=== PATIENT | male | born 1950 | race Caucasian/White ===

== ENCOUNTER 2019-07-08 08:14 | Emergency (ER) | payer BC ==
[2019-07-08 08:37] VITALS: BP 143/92
--- NOTE | 2019-07-08 09:30 | UC ---
Skin Complaint HPI - HPI Summary HPI Summary: rash right mid back x 4 days the area is painful and itchy pain is 6 out of 10, nothing makes it better or worse no known contacts , concern about some kind of bits no fever, no chills - History of Current Complaint Chief Complaint: [facility] Time Seen by Provider: 07/08/19 08:54 Stated Complaint: SKIN CONCERN Hx Obtained From: Patient Onset/Duration: Gradual Onset, Lasting Days - 4, Still Present Timing: Constant Onset Severity: Moderate Current Severity: Moderate Pain Intensity: 0 Pain Scale Used: 0-10 Numeric Location: Discrete - right mid back Character: Swelling, Pruritus, Pain, Redness Aggravating Factor(s): Nothing Alleviating Factor(s): Nothing Associated Signs & Symptoms: Positive: Negative - Allergy/Home Medications Allergies/Adverse Reactions: Allergies Allergy/AdvReac Type Severity Reaction Status Date / Time No Known Allergies Allergy Verified 07/08/19 08:33 Home Medications: Home Medications Ascorbic Acid TAB* [Vitamin C TAB*] 500 mg PO DAILY 07/08/19 [History Confirmed 07/08/19] Aspirin [Aspir-Low] 81 mg PO DAILY 07/08/19 [History Confirmed 07/08/19] Atorvastatin* [Lipitor*] 40 mg PO DAILY 07/08/19 [History Confirmed 07/08/19] Clopidogrel TAB* [Plavix TAB*] 75 mg PO DAILY 07/08/19 [History Confirmed ] Metoprolol Tartrate TAB* [Lopressor TAB*] 25 mg PO DAILY 07/08/19 [History Confirmed 07/08/19] PMH/Surg Hx/FS Hx/Imm Hx Endocrine History: Diabetes Cardiovascular History: Cardiac Disease, Hypertension - Surgical History Surgical History: Yes Surgery Procedure, Year, and Place: stents. aortic valve replacement - Family History Known Family History: Positive: Diabetes - Social History Alcohol Use: Occasionally Substance Use Type: None Smoking Status (MU): Heavy Every Day Tobacco Smoker Type: Cigars Amount Used/How Often: 1 PPD Review of Systems All Other Systems Reviewed And Are Negative: Yes Constitutional: Positive: Negative Skin: Positive: Rash Is Patient Immunocompromised?: No Physical Exam Triage Information Reviewed: Yes Appearance: Well-Appearing, No Pain Distress, Well-Nourished Vital Signs: Initial Vital Signs Temp 97.5 F 07/08/19 08:33 Pulse 79 07/08/19 08:33 Resp 17 07/08/19 08:33 BP 143/92 07/08/19 08:33 Pulse Ox 98 07/08/19 08:33 Vital Signs Reviewed: Yes Eye Exam: Normal Eyes: Positive: Conjunctiva Clear ENT: Positive: Normal ENT inspection, Hearing grossly normal, Pharynx normal Neck: Positive: Supple, Nontender, No Lymphadenopathy Respiratory: Positive: Chest non-tender, Lungs clear, Normal breath sounds Cardiovascular: Positive: RRR, No Murmur, Pulses Normal Skin: Positive: Rashes - visicular rash right mid back , + tenderness Course/Dx - Diagnoses Provider Diagnosis: Shingles, Hypertension Discharge ED - Sign-Out/Discharge Documenting (check all that apply): Patient Departure All imaging exams completed and their final reports reviewed: No Studies - Discharge Plan Condition: Stable Disposition: HOME Prescriptions: ValACYclovir (*) [Valtrex 1 GM(*)] 1 gm PO TID #21 tab Patient Education Materials: Jennifer (ED) Referrals: No Primary Care Phys,NOPCP [Primary Care Provider] - 7 Days - Billing Disposition and Condition Condition: STABLE Disposition: Home
== END 2019-07-08 09:05 | disposition home or self-care (01) ==
LOC: UCCORT 08:14
DX: B02.9 Zoster without complications (principal); I10 Essential (primary) hypertension; I51.9 Heart disease, unspecified; F17.290 Nicotine dependence, other tobacco product, uncomplicated; E11.9 Type 2 diabetes mellitus without complications; Z79.82 Long term (current) use of aspirin; Z95.5 Presence of coronary angioplasty implant and graft; Z79.01 Long term (current) use of anticoagulants; Z83.3 Family history of diabetes mellitus
CPT/HCPCS: 99202; G0463